=== PATIENT | male | born 1965 ===

== ENCOUNTER 2021-12-13 05:51 | Emergency (ER) | payer SELFPAY ==
[2021-12-13 06:56] LABS: Absolute Lymphocytes (CBC) 1.4 K/uL (0.7-4.9); Hematocrit 46.4 % (39.6-49.0); Lymphocytes % 22.8 % (15.3-44.8); MCV 90.1 fL (80-100); MPV 7.6 fL (7.6-11.3); RBC Red Blood Cell Count 5.15 M/uL (4.33-5.43)
[2021-12-13 07:13] LABS: Albumin 4.2 g/dL (3.4-5.0); Bilirubin Total 0.6 mg/dL (0.2-1.0); Potassium 4.2 mmol/L (3.5-5.1); Protein, Total 7.6 g/dL (6.4-8.2)
[2021-12-13] MEDS ORDERED: ALBUTEROL 2.5 MG/3 ML NEB SOL ONE (07:24)
[2021-12-13] MEDS ORDERED: IPRATROPIUM BROM 0.5MG/2.5ML ONE (07:25)
--- NOTE | 2021-12-13 07:56 | RAD REPORT ---
EXAM DESCRIPTION: CTAbdomen Pelvis W Contrast - 12/13/2021 7:36 am CLINICAL HISTORY: Abdominal pain. Abdominal pain, acute, nonlocalized COMPARISON: <Comparisons> TECHNIQUE: Biphasic CT imaging of the abdomen and pelvis was performed with 100 ml non-ionic IV cont rast. All CT scans are performed using dose optimization technique as appropriate and may include automated exposure control or mA/KV adjustment according to patient size. FINDINGS: The lung bases are clear. The liver, spleen, pancreas, adrenal glands and kidneys are within normal limits. No bowel obstruction, free air, free fluid or abscess. Mild sigmoid diverticulosis. Small fat contain ing umbilical. No evidence of significant lymphadenopathy. Mild lumbosacral degenerative changes IMPRESSION: No acute intra-abdominal or pelvic finding.
--- NOTE | 2021-12-13 08:52 | EDPHYS ---
Physician Documentation [facility] Name: Jose Valentino Age: 55 yrs Sex: Male : 1965 Arrival Date: 12/13/2021 Time: 05:55 Bed 17 Private MD: ED Physician Karl Wodo Historical: - Allergies: 12/13 06:32 No Known Allergies; tw5 - PMHx: 06:32 Hypertensive disorder; tw5 - PSHx: 06:32 Appendectomy; tw5 - Immunization history:: Flu vaccine is not up to date. - Social history:: Smoking status: Patient denies any tobacco usage or history of. Vital Signs: 06:29 BP 173 / 63; Pulse 74; Resp 22; Temp 98.3(O); Pulse Ox 92% on R/A; Weight 99.79 kg; tw5 Height 6 ft. 2 in. (187.96 cm); Pain /10; 07:00 BP 148 / 90; Pulse 76; Resp 16; Pulse Ox 97% on R/A; tp1 08:03 BP 141 / 78; Pulse 69; Resp 16; Pulse Ox 99% ; tp1 09:17 BP 140 / 89; Pulse 86; Resp 16; Pulse Ox 100% on R/A; tp1 06:29 Body Mass Index 28.25 (99.79 kg, 187.96 cm) tw5 MDM: 08:52 Patient medically screened. kdr 12/13 05:58 Order name: CBC with Diff kdr 12/13 05:58 Order name: CMP kdr 12/13 05:58 Order name: CT Abd/Pelvis - IV Contrast Only kdr 12/13 07:04 Order name: CBC with Automated Diff; Complete Time: 07:18 EDMS 12/13 07:18 Order name: Comprehensive Metabolic Panel; Complete Time: 07:18 EDMS 12/13 09:00 Order name: Urine Dipstick-Ancillary EDMS 12/13 05:58 Order name: IV Saline Lock; Complete Time: 06:51 kdr 12/13 05:58 Order name: Labs collected and sent; Complete Time: 06:51 kdr 12/13 05:58 Order name: Urine Dipstick-Ancillary (obtain specimen) kdr 12/13 07:56 Order name: CT; Complete Time: 08:42 EDMS 12/13 08:50 Order name: Urine Dipstick-Ancillary (obtain specimen); Complete Time: 09:14 kdr Administered Medications: 07:50 Drug: Albuterol - atroVENT (ipratropium) (3:1) (2.5 mg - 0.5 mg) 3 ml Route: Nebulizer; tp1 09:14 Follow up: Response: Wheezing diminished tp1 Disposition Summary: 12/13/21 08:52 Discharge Ordered Location: Home kdr Problem: new kdr Symptoms: have improved kdr Condition: Stable kdr Diagnosis - Abdominal pain, Generalized kdr - Lower abdominal pain, unspecified kdr - Shortness of breath kdr Followup: kdr - With: Private Physician - When: 2 - 3 days - Reason: If symptoms return, Further diagnostic work-up, Recheck today's complaints, Continuance of care, Re-evaluation by your physician Discharge Instructions: - Discharge Summary Sheet kdr - Shortness of Breath, Adult, [id number] kdr - Abdominal Pain, Adult, [id number] kdr Forms: - Medication Reconciliation Form kdr - Thank You Letter kdr Prescriptions: - albuterol sulfate 2.5 mg /3 mL (0.083 %) Inhalation solution for nebulization - inhale 3 milliliter by NEBULIZATION route every 8 hours As needed; 1 box; kdr Refills: 0, Product Selection Permitted - ipratropium bromide 0.02 % Inhalation solution - inhale 1.25 milliliter by INHALATION route 3 times per day As needed Mix with kdr albuterol; 16 milliliter; Refills: 0, Product Selection Permitted Signatures: Dispatcher [employer] Karl Stark MD MD kdr Bridgette Vasquez tw5 Bridgette Gamez RN RN tp1
--- NOTE | 2021-12-13 08:52 | ER ---
Nurse's Notes [facility] Name: Jose Valentino Age: 55 yrs Sex: Male : 1965 Arrival Date: 12/13/2021 Time: 05:55 Bed 17 Private MD: Diagnosis: Abdominal pain, Generalized;Lower abdominal pain, unspecified;Shortness of breath Presentation: 12/13 06:29 Chief complaint: Patient states: "I felt like I had to pee really bad, then I felt a tw5 sharp pain. I curled into a ball, then i stretched out. Then I felt like a release in my stomach, like something popped. I peed a little but not a lot came out. Then I felt like a gurgling in my stomach.". Coronavirus screen: Vaccine status: Patient reports being unvaccinated. Ebola Screen: Patient negative for fever greater than or equal to 101.5 degrees Fahrenheit, and additional compatible Ebola Virus Disease symptoms Patient denies exposure to infectious person. Patient denies travel to an Ebola-affected area in the 21 days before illness onset. Initial Sepsis Screen: Does the patient meet any 2 criteria? No. Patient's initial sepsis screen is negative. Does the patient have a suspected source of infection? No. Patient's initial sepsis screen is negative. Risk Assessment: Do you want to hurt yourself or someone else? Patient reports no desire to harm self or others. Onset of symptoms was December 13, 2021 at 03:45. 06:29 Method Of Arrival: Ambulatory tw5 06:29 Acuity: MTA 2 tw5 Triage Assessment: 06:32 General: Appears uncomfortable, Behavior is quiet. Pain: Pain currently is 1 out of 10 tw5 on a pain scale. at worst was 10 out of 10 on a pain scale. Derm: Skin is pale. Historical: - Allergies: 06:32 No Known Allergies; tw5 - PMHx: 06:32 Hypertensive disorder; tw5 - PSHx: 06:32 Appendectomy; tw5 - Immunization history:: Flu vaccine is not up to date. - Social history:: Smoking status: Patient denies any tobacco usage or history of. Screenin:04 Abuse screen: Denies threats or abuse. Denies injuries from another. Nutritional tp1 screening: No deficits noted. Tuberculosis screening: No symptoms or risk factors identified. Fall Risk No fall in past 12 months (0 pts). No secondary diagnosis (0 pts). IV access (20 points). Ambulatory Aid- None/Bed Rest/Nurse Assist (0 pts). Gait- Normal/Bed Rest/Wheelchair (0 pts) Mental Status- Oriented to own ability (0 pts). Assessment: 07:20 General: Appears in no apparent distress. comfortable, Behavior is calm, cooperative. tp1 Neuro: Level of Consciousness is awake, alert, obeys commands, Oriented to person, place, time, situation. Cardiovascular: Patient's skin is warm and dry. Respiratory: Airway is patent Respiratory effort is even, unlabored, Respiratory pattern is regular. Musculoskeletal: Circulation, motion, and sensation intact. 07:25 Reassessment: escorted to CT via wheelchair by Kihon. tp1 07:45 Reassessment: returned from CT. tp1 07:50 Respiratory: Respiratory effort is even, unlabored, Breath sounds with wheezes tp1 bilaterally. 08:15 Reassessment: Patient appears in no apparent distress at this time. Patient and/or tp1 family updated on plan of care and expected duration. Pain level reassessed. Patient is alert, oriented x 3, equal unlabored respirations, skin warm/dry/pink. bilateral lung sounds clear to auscultation Patient denies pain at this time. 09:15 Reassessment: Patient appears in no apparent distress at this time. No changes from tp1 previously documented assessment. Patient and/or family updated on plan of care and expected duration. Pain level reassessed. Patient is alert, oriented x 3, equal unlabored respirations, skin warm/dry/pink. Patient denies pain at this time. Vital Signs: 06:29 BP 173 / 63; Pulse 74; Resp 22; Temp 98.3(O); Pulse Ox 92% on R/A; Weight 99.79 kg; tw5 Height 6 ft. 2 in. (187.96 cm); Pain 03/23; 07:00 BP 148 / 90; Pulse 76; Resp 16; Pulse Ox 97% on R/A; tp1 08:03 BP 141 / 78; Pulse 69; Resp 16; Pulse Ox 99% ; tp1 09:17 BP 140 / 89; Pulse 86; Resp 16; Pulse Ox 100% on R/A; tp1 06:29 Body Mass Index 28.25 (99.79 kg, 187.96 cm) tw5 ED Course: 05:55 Patient arrived in ED. bp1 05:56 Kral Wood MD is Attending Physician. kdr 06:32 Triage completed. tw5 06:32 Arm band placed on. tw5 07:00 Patient has correct armband on for positive identification. Placed in gown. Bed in low tp1 position. Call light in reach. Adult w/ patient. 07:19 Bridgette Gamez, KELLEN is Primary Nurse. tp1 09:25 IV discontinued, intact, bleeding controlled, No redness/swelling at site. Pressure tp1 dressing applied, 20 G R AC. 09:25 No provider procedures requiring assistance completed. tp1 Administered Medications: 07:50 Drug: Albuterol - atroVENT (ipratropium) (3:1) (2.5 mg - 0.5 mg) 3 ml Route: Nebulizer; tp1 09:14 Follow up: Response: Wheezing diminished tp1 Medication: 09:24 VIS not applicable for this client. tp1 Output: 09:17 Urine: 375ml (Voided); Total: 375ml. tp1 Outcome: 08:52 Discharge ordered by . kdr 09:24 Discharged to home ambulatory, with family. tp1 09:24 Condition: good 09:24 Discharge instructions given to patient, Instructed on discharge instructions, follow up and referral plans. medication usage, Demonstrated understanding of instructions, follow-up care, medications, Prescriptions given X 2. 09:25 Patient left the ED. tp1 Signatures: Karl Wood MD MD kdr Shakila Witt bp1 Bridgette Vasquez tw5 Bridgette Gamez, RN RN tp1
[2021-12-13 09:00] LABS: Urine Blood Negative (Negative); Urine Glucose Negative (Negative); Urine Protein Negative (Negative); Urine Specific Gravity 1.015 (1.005-1.030); Urine pH 7.5 (5.0-7.0)
[2021-12-13 09:30] VITALS: TEMP 98.3
[2021-12-13 09:33] VITALS: BP 140/89; O2SAT 100
== END 2021-12-13 09:25 | disposition home or self-care (01) ==
LOC: ER 05:51
DX: R10.84 Generalized abdominal pain (principal); R06.02 Shortness of breath
CPT/HCPCS: 36415; 74177; 80053; 81003; 85025; 94640; 99284; Q9967